=== PATIENT | male | born 1960 | race Caucasian/White ===

== ENCOUNTER 2023-04-15 11:40 | Emergency (ER) | payer MEDICAID ==
--- NOTE | 2023-04-15 11:50 | ERPHSYRPT ---
- History of Present Illness Source: family, EMS Exam Limitations: clinical condition Timing/Duration: today Activities at Onset: activity Severity of Dyspnea-Max: moderate Severity of Dyspnea-Current: mild Possible Cause: no prior episodes Modifying Factors: Improves With: activity Associated Symptoms: ankle swelling, No chest pain/discomfort, No dizziness, No productive cough <AL REID - Last Filed: 04/15/23 18:52> <CHRISTOPH MILLER - Last Filed: 04/15/23 22:06> - History of Present Illness Time Seen by Provider: 04/15/23 11:50 Physician History: This is a 62-year-old white male patient brought in by the ambulance service because of patient falling/collapsing and unable to get up. Per EMS report, they arrived and patient was leaning forward with his hands holding his upper torso off the ground and both legs flexed posteriorly. When the paramedics rolled him onto his back and straightened out his legs he began having significant shortness of breath and there was a change in his mental status. Because of respiratory distress they opted to intubate him. Patient arrived to the emergency department intubated but awake alert and oriented. Respiratory therapy decided on their own to remove the ET tube that was in place. Per their report the balloon was not inflated. Patient was unable to provide information because of the orotracheal intubation. (AL REID) Allergies/Adverse Reactions: No Known Drug Allergies Allergy (Verified 04/15/23 11:58) Home Medications: No Reportable Medications [No Reported Medications] 04/15/23 [History] Travel Risk - International Travel Have you traveled outside of the country in past 3 weeks: No - Coronavirus Screening Are you exhibiting any of the following symptoms?: No Close contact with a COVID-19 positive Pt in past 14-21 Days: No <AL REID - Last Filed: 04/15/23 18:52> - Review of Systems Constitutional: No Symptoms Eyes: No Symptoms Ears, Nose, & Throat: No Symptoms Respiratory: Dyspnea Cardiac: No Symptoms Abdominal/Gastrointestinal: No Symptoms Genitourinary Symptoms: No Symptoms Musculoskeletal: No Symptoms Skin: No Symptoms Neurological: No Symptoms Psychological: No Symptoms Endocrine: No Symptoms Hematologic/Lymphatic: No Symptoms Immunological/Allergic: No Symptoms All Other Systems: Reviewed and Negative <AL REID GiancarloGuilherme - Last Filed: 04/15/23 18:52> - Past Medical History Pertinent Past Medical History: Yes - Past Surgical History Past Surgical History: Yes <AL REID GiancarloGuilherme - Last Filed: 04/15/23 18:52> - Physical Exam General Appearance: other (Patient orotracheally intubated awake and alert) Eye Exam: PERRL/EOMI, eyes nml inspection Ears, Nose, Throat Exam: hearing grossly normal Neck Exam: normal inspection, non-tender, supple, full range of motion Respiratory Exam: normal breath sounds, lungs clear, airway intact, other (Patient orotracheally intubated), No chest tenderness Cardiovascular/Chest Exam: normal heart sounds, regular rate/rhythm Abdominal/Gastrointestinal Exam: soft, normal bowel sounds, No tenderness Rectal Exam: not done Extremity Exam: pelvis stable, pedal edema Neurologic Exam: alert, oriented x 3, cooperative, 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, normal mood/affect Skin Exam: normal color, warm, dry Lymphatic Exam: No adenopathy SpO2 Interpretation: normal O2 Delivery: Room Air <AL REID GiancarloGuilherme - Last Filed: 04/15/23 18:52> - Nursing Vital Signs Nursing Vital Signs: Initial Vital Signs Temperature 97.6 F 04/15/23 11:41 Pulse Rate 107 H 04/15/23 11:41 Respiratory Rate 26 H 04/15/23 11:41 Blood Pressure 72/50 04/15/23 11:41 O2 Sat by Pulse Oximetry 99 04/15/23 11:41 Pain Scale Pain Intensity 0 - Course Nursing assessment & vital signs reviewed: Yes EKG Interpreted by Me: RATE ([id number]), Sinus Tach, NORMAL AXIS, NORMAL INTERVALS, NORMAL QRS, NORMAL ST-T, Other (No acute ischemic changes on today's twelve-lead EKG.) <AL REID GiancarloGuilherme - Last Filed: 04/15/23 18:52> Ordered Tests: Active Orders 24 hr Category Date Time Status Maid Cleaning Cooking STAT Care 04/15/23 11:53 Active EKG-ER Only STAT Care 04/15/23 11:51 Active IV Insertion STAT Care 04/15/23 11:51 Active POCT Glucose Check STAT Care 04/15/23 12:03 Active Pulse Oximetry (ED) STAT Care 04/15/23 11:51 Active ABDOMEN AND PELVIS W/0 CONTRAS [CT] Stat Exams 04/15/23 19:00 Completed CHEST 1 VIEW (PORTABLE) Routine Exams 04/15/23 14:41 Taken CHEST 1 VIEW (PORTABLE) Stat Exams 04/15/23 12:18 Taken HEAD WITHOUT CONTRAST [CT] Stat Exams 04/15/23 12:36 Completed ABG [ARTERIAL BLOOD GASES] Urgent Lab 04/15/23 15:55 Completed BLOOD CULTURE Stat Lab 04/15/23 12:10 Received BMP Stat Lab 04/15/23 17:07 Completed CBC W DIFF Stat Lab 04/15/23 12:10 Results CBC W DIFF Stat Lab 04/15/23 17:07 Completed CMP Stat Lab 04/15/23 12:10 Completed CULTURE,URINE Stat Lab 04/15/23 12:59 Received D-DIMER QUANTITATIVE Stat Lab 04/15/23 12:10 Completed Lactic Acid Stat Lab 04/15/23 12:15 Completed Lactic Acid Stat Lab 04/15/23 14:24 Completed MAGNESIUM Stat Lab 04/15/23 12:10 Completed Manual Differential NC Stat Lab 04/15/23 12:10 Results Manual Differential NC Stat Lab 04/15/23 17:07 Completed NT PRO BNPII Stat Lab 04/15/23 12:10 Completed POCT GLUCOSE Stat Lab 04/15/23 12:03 Completed Pathologist Review Stat Lab 04/15/23 12:10 Results TROPONIN Q4H Lab 04/15/23 12:10 Completed TROPONIN Q4H Lab 04/15/23 15:50 Completed TROPONIN Q4H Lab 04/15/23 20:20 Completed UA W/RFX UR CULTURE Stat Lab 04/15/23 12:59 Completed VBG [VENOUS BLOOD GAS] Stat Lab 04/15/23 12:21 Completed Transfer Order Routine Transfer 04/15/23 Ordered Medication Summary Generic Name Dose Route Start Last Admin Trade Name Freq PRN Reason Stop Dose Admin Sodium Chloride 1,000 mls @ 100 mls/hr 04/15/23 13:15 04/15/23 13:04 Sodium Chloride 0.9% 1000 Ml IV 05/15/23 13:14 100 mls/hr .Q10H ERNIE Administration Norepinephrine/Dextrose 8 mg in 250 mls @ 15 mls/hr 04/15/23 14:07 04/15/23 21:05 Norepinephrine 8 Mg/250 Ml-D5w IV 05/15/23 14:06 2 mcg/min .[id number] PRN 3.75 mls/hr HYPOTENSION Titration Protocol 8 MCG/MIN Sodium Chloride 1,000 mls @ 250 mls/hr 04/15/23 14:45 04/15/23 15:13 Sodium Chloride 0.9% 1000 Ml IV 05/15/23 14:44 250 mls/hr .Q4H ERNIE Administration Sodium Chloride 1,000 mls @ 999 mls/hr 04/15/23 21:50 Sodium Chloride 0.9% 1000 Ml IV 04/15/23 22:50 .Q1H1M STA Discontinued Medications Generic Name Dose Route Start Last Admin Trade Name Freq PRN Reason Stop Dose Admin Enoxaparin Sodium 80 mg 04/15/23 13:21 04/15/23 13:30 Enoxaparin Sodium 80 Mg/0.8 Ml Syringe SQ 04/15/23 13:22 80 mg STAT ONE Administration Enoxaparin Sodium Confirm 04/15/23 13:27 Enoxaparin Sodium 80 Mg/0.8 Ml Syringe Administered 04/15/23 13:28 Dose 80 mg SQ .STK-MED ONE Enoxaparin Sodium Confirm 04/15/23 13:32 Enoxaparin Sodium 80 Mg/0.8 Ml Syringe Administered 04/15/23 13:33 Dose 80 mg SQ .STK-MED ONE Meropenem 1 gm/ Sodium 100 mls @ 200 mls/hr 04/15/23 12:49 04/15/23 13:04 Chloride IV 04/15/23 13:18 200 mls/hr STAT ONE Administration Sodium Chloride Confirm 04/15/23 13:04 Sodium Chloride 100ml Mini-Bag Plus Administered 04/15/23 13:05 Dose 100 mls @ ud IV .STK-MED ONE Meropenem Confirm 04/15/23 13:03 Meropenem 1 Gm Vial Administered 04/15/23 13:04 Dose 1 gm IV .STK-MED ONE Lab/Rad Data: Laboratory Result Diagrams 04/15/23 17:07 04/15/23 17:07 Laboratory Results 04/15/23 04/15/23 04/15/23 Range/Units 20:20 17:07 17:07 WBC 21.2 H (4.0-10.5) x10^3/uL RBC 3.94 L (4.1-5.6) x10^6/uL Hgb 11.1 L (12.5-18.0) g/dL Hct 34.5 L (42-50) % MCV 87.6 (78-100) fL MCH 28.2 (26-32) pg MCHC 32.2 (32-36) g/dL RDW 15.2 H (11.5-14.0) % Plt Count 328 (150-450) x10^3/uL MPV 9.4 (7.5-11.0) fL Segmented Neutrophils 61 (36.-66.) % Band Neutrophils 24 H (0.0-2.0) % Lymphocytes (Manual) 4 L (24-44) % Monocytes (Manual) 4 (0.0-12.0) % Metamyelocytes 7 % Toxic Granulation Platelet Estimate NORMAL (NORMAL) RBC Morphology NORMAL Anisocytosis Smear Path Review D-Dimer (0.0-0.50) mg/L Puncture Site pCO2 (35-45) mmHg pO2 (75-100) mmHg pO2/FiO2 Ratio % Base Excess (-2.0-2.0) O2 Saturation (94-100) g/dF ABG pH (7.35-7.45) ABG HCO3 (22-28) ABG O2 Sat (Measured) (95-100) % Johnathon Test VBG pH (7.32-7.42) VBG pCO2 at Pat Temp (42-55) mm/Hg VBG pO2 at Pat Temp (25-40) mm/Hg VBG HCO3 (22-28) meq/L VBG O2 Sat (Harejet) (95-100) VBG Base Excess (-2.0-2.0) VBG Hemoglobin VBG Carboxyhemoglobin (0.0-6.9) % T HGB A-a Gradient a/A Ratio Hemoglobin Carboxyhemoglobin (0.0-6.9) % THgb Methemoglobin (1.4-1.5) % POC Potassium (3.5-5.1) Temperature C POC O2 Flow Rate % Sodium 134 L (137-145) mmol/L Potassium 4.2 (3.5-5.1) mmol/L Chloride 102 (98-107) mmol/L Carbon Dioxide 22 (22-30) mmol/L Anion Gap 14.9 (5-15) MEQ/L BUN 43 H (9-20) mg/dL Creatinine 1.75 H (0.66-1.25) mg/dL Estimated GFR 41.9 ML/MIN Glucose 149 H (74-106) mg/dL POC Glucometer (74 to 106) mg/dL Lactic Acid (0.4-2.0) Calcium 6.5 L D (8.4-10.2) mg/dL Magnesium (1.6-2.3) mg/dL Total Bilirubin (0.2-1.3) mg/dL AST (17-59) U/L ALT (0-50) U/L Alkaline Phosphatase (38-126) U/L Troponin I < 0.012 (0.000-0.034) ng/mL NT-Pro-B Natriuret Pep (<300) pg/mL Serum Total Protein (6.3-8.2) g/dL Albumin (3.5-5.0) g/dL Urine Color (Yellow) Urine Appearance (Clear) Urine pH (4.6-8.0) Ur Specific Crowder (1.005-1.030) Urine Protein (Negative) Urine Glucose (UA) (Negative) mg/dL Urine Ketones (Negative) Urine Blood (Negative) Urine Nitrite (Negative) Urine Bilirubin (Negative) Urine Urobilinogen (0.2) mg/dL Ur Leukocyte Esterase (Negative) U Hyaline Cast (Auto) (0-2) /LPF Urine Microscopic RBC (0-5) /HPF Urine Microscopic WBC (0-5) /HPF Ur Epithelial Cells (None Seen) /HPF Urine Bacteria (None Seen) /HPF Urine Culture Reflexed (NO) Influenza Type A Ag (NEGATIVE) Influenza Type B Ag (NEGATIVE) RSV (PCR) (NEGATIVE) SARS-CoV-2 (PCR) (NEGATIVE) 04/15/23 04/15/23 04/15/23 Range/Units 15:55 15:50 14:24 WBC (4.0-10.5) x10^3/uL RBC (4.1-5.6) x10^6/uL Hgb (12.5-18.0) g/dL Hct (42-50) % MCV (78-100) fL MCH (26-32) pg MCHC (32-36) g/dL RDW (11.5-14.0) % Plt Count (150-450) x10^3/uL MPV (7.5-11.0) fL Segmented Neutrophils (36.-66.) % Band Neutrophils (0.0-2.0) % Lymphocytes (Manual) (24-44) % Monocytes (Manual) (0.0-12.0) % Metamyelocytes % Toxic Granulation Platelet Estimate (NORMAL) RBC Morphology Anisocytosis Smear Path Review D-Dimer (0.0-0.50) mg/L Puncture Site LEFT BRACHIAL pCO2 30 L (35-45) mmHg pO2 61 L (75-100) mmHg pO2/FiO2 Ratio % Base Excess -3.6 L (-2.0-2.0) O2 Saturation 90.6 L (94-100) g/dF ABG pH 7.43 (7.35-7.45) ABG HCO3 19.9 L (22-28) ABG O2 Sat (Measured) 90.9 L (95-100) % Johnathon Test na VBG pH (7.32-7.42) VBG pCO2 at Pat Temp (42-55) mm/Hg VBG pO2 at Pat Temp (25-40) mm/Hg VBG HCO3 (22-28) meq/L VBG O2 Sat (Harjeet) (95-100) VBG Base Excess (-2.0-2.0) VBG Hemoglobin VBG Carboxyhemoglobin (0.0-6.9) % T HGB A-a Gradient 130 a/A Ratio 0.32 Hemoglobin 10.9 Carboxyhemoglobin 0.3 (0.0-6.9) % THgb Methemoglobin 0.0 L (1.4-1.5) % POC Potassium (3.5-5.1) Temperature 37.0 C POC O2 Flow Rate 32 % Sodium (137-145) mmol/L Potassium 3.9 (3.5-5.1) mmol/L Chloride (98-107) mmol/L Carbon Dioxide (22-30) mmol/L Anion Gap (5-15) MEQ/L BUN (9-20) mg/dL Creatinine (0.66-1.25) mg/dL Estimated GFR ML/MIN Glucose (74-106) mg/dL POC Glucometer (74 to 106) mg/dL Lactic Acid 1.2 (0.4-2.0) Calcium (8.4-10.2) mg/dL Magnesium (1.6-2.3) mg/dL Total Bilirubin (0.2-1.3) mg/dL AST (17-59) U/L ALT (0-50) U/L Alkaline Phosphatase (38-126) U/L Troponin I < 0.012 (0.000-0.034) ng/mL NT-Pro-B Natriuret Pep (<300) pg/mL Serum Total Protein (6.3-8.2) g/dL Albumin (3.5-5.0) g/dL Urine Color (Yellow) Urine Appearance (Clear) Urine pH (4.6-8.0) Ur Specific Crowder (1.005-1.030) Urine Protein (Negative) Urine Glucose (UA) (Negative) mg/dL Urine Ketones (Negative) Urine Blood (Negative) Urine Nitrite (Negative) Urine Bilirubin (Negative) Urine Urobilinogen (0.2) mg/dL Ur Leukocyte Esterase (Negative) U Hyaline Cast (Auto) (0-2) /LPF Urine Microscopic RBC (0-5) /HPF Urine Microscopic WBC (0-5) /HPF Ur Epithelial Cells (None Seen) /HPF Urine Bacteria (None Seen) /HPF Urine Culture Reflexed (NO) Influenza Type A Ag (NEGATIVE) Influenza Type B Ag (NEGATIVE) RSV (PCR) (NEGATIVE) SARS-CoV-2 (PCR) (NEGATIVE) 04/15/23 04/15/23 04/15/23 Range/Units 12:59 12:21 12:15 WBC (4.0-10.5) x10^3/uL RBC (4.1-5.6) x10^6/uL Hgb (12.5-18.0) g/dL Hct (42-50) % MCV (78-100) fL MCH (26-32) pg MCHC (32-36) g/dL RDW (11.5-14.0) % Plt Count (150-450) x10^3/uL MPV (7.5-11.0) fL Segmented Neutrophils (36.-66.) % Band Neutrophils (0.0-2.0) % Lymphocytes (Manual) (24-44) % Monocytes (Manual) (0.0-12.0) % Metamyelocytes % Toxic Granulation Platelet Estimate (NORMAL) RBC Morphology Anisocytosis Smear Path Review D-Dimer (0.0-0.50) mg/L Puncture Site pCO2 (35-45) mmHg pO2 (75-100) mmHg pO2/FiO2 Ratio 100.0 % Base Excess (-2.0-2.0) O2 Saturation (94-100) g/dF ABG pH (7.35-7.45) ABG HCO3 (22-28) ABG O2 Sat (Measured) (95-100) % Johnathon Test VBG pH 7.21 L* (7.32-7.42) VBG pCO2 at Pat Temp 47 (42-55) mm/Hg VBG pO2 at Pat Temp 48 H (25-40) mm/Hg VBG HCO3 18.8 L (22-28) meq/L VBG O2 Sat (Harjeet) 70.8 L (95-100) VBG Base Excess -8.9 L (-2.0-2.0) VBG Hemoglobin 12.3 VBG Carboxyhemoglobin 4.8 (0.0-6.9) % T HGB A-a Gradient a/A Ratio Hemoglobin Carboxyhemoglobin (0.0-6.9) % THgb Methemoglobin (1.4-1.5) % POC Potassium 5.0 (3.5-5.1) Temperature C POC O2 Flow Rate % Sodium (137-145) mmol/L Potassium (3.5-5.1) mmol/L Chloride (98-107) mmol/L Carbon Dioxide (22-30) mmol/L Anion Gap (5-15) MEQ/L BUN (9-20) mg/dL Creatinine (0.66-1.25) mg/dL Estimated GFR ML/MIN Glucose (74-106) mg/dL POC Glucometer (74 to 106) mg/dL Lactic Acid 7.0 H (0.4-2.0) Calcium (8.4-10.2) mg/dL Magnesium (1.6-2.3) mg/dL Total Bilirubin (0.2-1.3) mg/dL AST (17-59) U/L ALT (0-50) U/L Alkaline Phosphatase (38-126) U/L Troponin I (0.000-0.034) ng/mL NT-Pro-B Natriuret Pep (<300) pg/mL Serum Total Protein (6.3-8.2) g/dL Albumin (3.5-5.0) g/dL Urine Color Dark Yellow (Yellow) Urine Appearance Clear (Clear) Urine pH 5.5 (4.6-8.0) Ur Specific Crowder >=1.030 A (1.005-1.030) Urine Protein 30 (Negative) Urine Glucose (UA) Negative (Negative) mg/dL Urine Ketones 15 A (Negative) Urine Blood Negative (Negative) Urine Nitrite Positive A (Negative) Urine Bilirubin Moderate A (Negative) Urine Urobilinogen 2.0 A (0.2) mg/dL Ur Leukocyte Esterase Small A (Negative) U Hyaline Cast (Auto) 3-5 A (0-2) /LPF Urine Microscopic RBC 0-2 (0-5) /HPF Urine Microscopic WBC 3-5 (0-5) /HPF Ur Epithelial Cells None Seen (None Seen) /HPF Urine Bacteria None Seen (None Seen) /HPF Urine Culture Reflexed YES (NO) Influenza Type A Ag (NEGATIVE) Influenza Type B Ag (NEGATIVE) RSV (PCR) (NEGATIVE) SARS-CoV-2 (PCR) (NEGATIVE) 04/15/23 04/15/23 04/15/23 Range/Units 12:10 12:10 12:10 WBC (4.0-10.5) x10^3/uL RBC (4.1-5.6) x10^6/uL Hgb (12.5-18.0) g/dL Hct (42-50) % MCV (78-100) fL MCH (26-32) pg MCHC (32-36) g/dL RDW (11.5-14.0) % Plt Count (150-450) x10^3/uL MPV (7.5-11.0) fL Segmented Neutrophils (36.-66.) % Band Neutrophils (0.0-2.0) % Lymphocytes (Manual) (24-44) % Monocytes (Manual) (0.0-12.0) % Metamyelocytes % Toxic Granulation Platelet Estimate (NORMAL) RBC Morphology Anisocytosis Smear Path Review D-Dimer 3.70 H* (0.0-0.50) mg/L Puncture Site pCO2 (35-45) mmHg pO2 (75-100) mmHg pO2/FiO2 Ratio % Base Excess (-2.0-2.0) O2 Saturation (94-100) g/dF ABG pH (7.35-7.45) ABG HCO3 (22-28) ABG O2 Sat (Measured) (95-100) % Johnathon Test VBG pH (7.32-7.42) VBG pCO2 at Pat Temp (42-55) mm/Hg VBG pO2 at Pat Temp (25-40) mm/Hg VBG HCO3 (22-28) meq/L VBG O2 Sat (Harjeet) (95-100) VBG Base Excess (-2.0-2.0) VBG Hemoglobin VBG Carboxyhemoglobin (0.0-6.9) % T HGB A-a Gradient a/A Ratio Hemoglobin Carboxyhemoglobin (0.0-6.9) % THgb Methemoglobin (1.4-1.5) % POC Potassium (3.5-5.1) Temperature C POC O2 Flow Rate % Sodium (137-145) mmol/L Potassium (3.5-5.1) mmol/L Chloride (98-107) mmol/L Carbon Dioxide (22-30) mmol/L Anion Gap (5-15) MEQ/L BUN (9-20) mg/dL Creatinine (0.66-1.25) mg/dL Estimated GFR ML/MIN Glucose (74-106) mg/dL POC Glucometer (74 to 106) mg/dL Lactic Acid (0.4-2.0) Calcium (8.4-10.2) mg/dL Magnesium (1.6-2.3) mg/dL Total Bilirubin (0.2-1.3) mg/dL AST (17-59) U/L ALT (0-50) U/L Alkaline Phosphatase (38-126) U/L Troponin I < 0.012 (0.000-0.034) ng/mL NT-Pro-B Natriuret Pep (<300) pg/mL Serum Total Protein (6.3-8.2) g/dL Albumin (3.5-5.0) g/dL Urine Color (Yellow) Urine Appearance (Clear) Urine pH (4.6-8.0) Ur Specific Crowder (1.005-1.030) Urine Protein (Negative) Urine Glucose (UA) (Negative) mg/dL Urine Ketones (Negative) Urine Blood (Negative) Urine Nitrite (Negative) Urine Bilirubin (Negative) Urine Urobilinogen (0.2) mg/dL Ur Leukocyte Esterase (Negative) U Hyaline Cast (Auto) (0-2) /LPF Urine Microscopic RBC (0-5) /HPF Urine Microscopic WBC (0-5) /HPF Ur Epithelial Cells (None Seen) /HPF Urine Bacteria (None Seen) /HPF Urine Culture Reflexed (NO) Influenza Type A Ag NEGATIVE (NEGATIVE) Influenza Type B Ag NEGATIVE (NEGATIVE) RSV (PCR) NEGATIVE (NEGATIVE) SARS-CoV-2 (PCR) NEGATIVE (NEGATIVE) 04/15/23 04/15/23 04/15/23 Range/Units 12:10 12:10 12:03 WBC 26.6 H* (4.0-10.5) x10^3/uL RBC 4.25 (4.1-5.6) x10^6/uL Hgb 12.1 L (12.5-18.0) g/dL Hct 38.1 L (42-50) % MCV 89.6 (78-100) fL MCH 28.5 (26-32) pg MCHC 31.8 L (32-36) g/dL RDW 15.3 H (11.5-14.0) % Plt Count 403 (150-450) x10^3/uL MPV 9.6 (7.5-11.0) fL Segmented Neutrophils 74 H (36.-66.) % Band Neutrophils 5 H (0.0-2.0) % Lymphocytes (Manual) 17 L (24-44) % Monocytes (Manual) 4 (0.0-12.0) % Metamyelocytes % Toxic Granulation 1+ Platelet Estimate NORMAL (NORMAL) RBC Morphology ABNORMAL Anisocytosis 1+ Smear Path Review Pending D-Dimer (0.0-0.50) mg/L Puncture Site pCO2 (35-45) mmHg pO2 (75-100) mmHg pO2/FiO2 Ratio % Base Excess (-2.0-2.0) O2 Saturation (94-100) g/dF ABG pH (7.35-7.45) ABG HCO3 (22-28) ABG O2 Sat (Measured) (95-100) % Johnathon Test VBG pH (7.32-7.42) VBG pCO2 at Pat Temp (42-55) mm/Hg VBG pO2 at Pat Temp (25-40) mm/Hg VBG HCO3 (22-28) meq/L VBG O2 Sat (Harjeet) (95-100) VBG Base Excess (-2.0-2.0) VBG Hemoglobin VBG Carboxyhemoglobin (0.0-6.9) % T HGB A-a Gradient a/A Ratio Hemoglobin Carboxyhemoglobin (0.0-6.9) % THgb Methemoglobin (1.4-1.5) % POC Potassium (3.5-5.1) Temperature C POC O2 Flow Rate % Sodium 136 L (137-145) mmol/L Potassium 4.9 (3.5-5.1) mmol/L Chloride 98 (98-107) mmol/L Carbon Dioxide 18 L (22-30) mmol/L Anion Gap 25.2 H (5-15) MEQ/L BUN 36 H (9-20) mg/dL Creatinine 1.90 H (0.66-1.25) mg/dL Estimated GFR 38.1 ML/MIN Glucose 181 H (74-106) mg/dL POC Glucometer 172 H (74 to 106) mg/dL Lactic Acid (0.4-2.0) Calcium 7.7 L (8.4-10.2) mg/dL Magnesium 2.6 H (1.6-2.3) mg/dL Total Bilirubin 1.20 (0.2-1.3) mg/dL AST 217 H (17-59) U/L ALT 71 H (0-50) U/L Alkaline Phosphatase 128 H (38-126) U/L Troponin I (0.000-0.034) ng/mL NT-Pro-B Natriuret Pep 2530 (<300) pg/mL Serum Total Protein 6.6 (6.3-8.2) g/dL Albumin 2.7 L (3.5-5.0) g/dL Urine Color (Yellow) Urine Appearance (Clear) Urine pH (4.6-8.0) Ur Specific Crowder (1.005-1.030) Urine Protein (Negative) Urine Glucose (UA) (Negative) mg/dL Urine Ketones (Negative) Urine Blood (Negative) Urine Nitrite (Negative) Urine Bilirubin (Negative) Urine Urobilinogen (0.2) mg/dL Ur Leukocyte Esterase (Negative) U Hyaline Cast (Auto) (0-2) /LPF Urine Microscopic RBC (0-5) /HPF Urine Microscopic WBC (0-5) /HPF Ur Epithelial Cells (None Seen) /HPF Urine Bacteria (None Seen) /HPF Urine Culture Reflexed (NO) Influenza Type A Ag (NEGATIVE) Influenza Type B Ag (NEGATIVE) RSV (PCR) (NEGATIVE) SARS-CoV-2 (PCR) (NEGATIVE) - Progress Progress: improved, re-examined Air Movement: fair Blood Culture(s) Obtained: Yes Antibiotics given: Yes Counseled pt/family regarding: lab results, diagnosis, rad results <AL REID - Last Filed: 04/15/23 18:52> <CHRISTOPH MILLER - Last Filed: 04/15/23 22:06> - Progress Progress Note: 04/15/23 12:25 Patient was extubated by respiratory therapy without my consent or permission. Since his extubation he has been able to provide more information. Patient was down lower to the ground outside of his vehicle looking for his keys. They had fallen between his seat and the console. He apparently was down on his knees and unable to get up. He states he had not actually fall and he just could not get up and he felt short of breath but did not have chest pain or abdominal pain. He did not hit his head. He states that he was down for a while looking for his keys and when EMS arrived they rolled him on his back and stretch his legs out and then the above history was obtained from the paramedics independently. Currently, he states he has no headache, he has no vision changes, he is awake alert oriented. He has no chest pain and he has no abdominal pain. He does feel short of breath. 04/15/23 13:12 Chest x-ray was interpreted by me. This patient has bilateral/bibasilar pneum othoraces. 04/15/23 13:18 I was able to obtain additional, independent information from a family friend who states that this patient has not seen a doctor in many years. He has been very weak in the last several weeks per her report. The patient does not have an established physician. He is not on any medications and he has no known drug allergies. 04/15/23 18:09 This patient's medical issue is 1 of high complexity. The level of complexity and the work-up performed is based on review of the patient's past medical history, review the patient's medication list, review the patient's drug allergy list, history present illness and physical findings on examination. This patient's work-up includes chest x-ray, Agudelo catheter placement, CBC, CMP, D- dimer, BNP, troponin level, twelve-lead EKG, CT scan of the head, lactic acid level, VBG. We had respiratory evaluate this patient. I reviewed the patient's work-up results. Based on the results the patient has sepsis and the sources are likely respiratory and/or urinary. The patient had bilateral pneumothoraces and we placed a right and left Heimlich valve 8 [place]. Pre and post Heimlich valve placement chest x-rays were reviewed and interpreted by me. We sent off some pleural fluid for microscopic and cell count evaluation. We provided the patient with Primaxin antibiotic. We placed the patient on low-dose Levophed for his hypotension. We repeated CBC and a BMP as well as an arterial blood gas which showed improvement following our treatment/intervention. I spoke with Dr. Fuentes, our telehospitalist. I also spoke with him our head of housekeeping nurse. The patient will be placed in the ICU setting on low-dose Levophed. Patient also received Primaxin intravenously, intravenous fluid, Lovenox subcutaneously every 12 hours, repeat twelve-lead EKG in the morning, repeat labs in the morning, VQ scan. We will repeat a chest x-ray in the morning as well. 04/15/23 18:30 We will hold off on the admission into the hospital I reviewed the radiologist impression and then contacted the radiology company reading for us this evening and I do see that there is actually not a pneumothorax but actually bilateral tension pneumoperitoneum and will perform a CT scan of the abdomen pelvis. 04/15/23 18:52 I will be signing this patient out to/transfer of care to Dr. Lamas at shift change. He will make final disposition of this patient. (AL REID) 04/15/23 21:58 Patient signed out by Dr. Reid. Patient CT abdominal pelvis came back with significance of cecal wall perforation, cecum volvulus with intraluminal air. Patient's vitals remained stable. Patient was weaned down on Levophed and oxygen supplementation. Hope to Dr. Parsons at [facility] in [place] regarding transfer of patient to their hospital. Dr. Parsons discussed case with the general surgery both agree that patient requires transfer to their facility. We will transfer patient via ALS to facility. (CHRISTOPH MILLER) Medical Desision Making - Diagnostic Testing Diagnostic test were ordered, analyzed, and reviewed by me: Yes Radiological Interpretation: Interpreted by me, Reviewed by me, Teleradiologist Report - Risk of complications The pt has a high risk of morbidity or mortality based on: Decision regarding hospitilization or escalation of hosp level of care <AL REID - Last Filed: 04/15/23 18:52> - Departure Critical Care Time: Yes Critical Care Time(excluding separately billable procedures): Critical 30-74 mins (50 minutes) <AL REID - Last Filed: 04/15/23 18:52> - Departure Departure Disposition: Transfer (Patient is being transferred to [facility] to Dr. Parsons who is a accepting physician.) <CHRISTOPH MILLER - Last Filed: 04/15/23 22:06> - Departure Clinical Impression: Bilateral pneumothoraces, Sepsis, UTI (urinary tract infection), Hypotension, Elevated d-dimer, Perforation bowel, Cecal volvulus Condition: Serious Referrals: DOCTOR,NO FAMILY [Primary Care Provider] - Follow up/PCP as directed
[2023-04-15 12:20] LABS: Hematocrit 38.1 % (42-50); Hemoglobin 12.1 g/dL (12.5-18.0); Mean Cell Volume 89.6 fL (78-100); Mean Corpuscular Hemoglobin 28.5 pg (26-32); Mean Corpuscular Hgb Concent. 31.8 g/dL (32-36); Mean Platelet Volume 9.6 fL (7.5-11.0); Platelet Count 403 x10^3/uL (150-450); Red Blood Count 4.25 x10^6/uL (4.1-5.6); Red Cell Distribution Width 15.3 % (11.5-14.0)
[2023-04-15 12:22] LABS: VBG BASE EXCESS -8.9 (-2.0-2.0); VBG CARBOXYHEMOGLOBIN 4.8 % T HGB (0.0-6.9); VBG HCO3- 18.8 meq/L (22-28); VBG HEMOGLOBIN 12.3; VBG O2 SATURATION 70.8 (95-100); VBG pH 7.21 (7.32-7.42)
[2023-04-15 12:26] LABS: White Blood Count 26.6 x10^3/uL (4.0-10.5)
[2023-04-15 12:41] LABS: ALBUMIN 2.7 g/dL (3.5-5.0); ANION GAP 25.2 MEQ/L (5-15); BILIRUBIN,TOTAL 1.2 mg/dL (0.2-1.3); Calcium 7.7 mg/dL (8.4-10.2); Creatinine 1 1.9 mg/dL (0.66-1.25); EST GLOMERULAR FILTRATION RATE 38.1 ML/MIN; MAGNESIUM 2.6 mg/dL (1.6-2.3); Potassium 4.9 mmol/L (3.5-5.1); Total Protein 6.6 g/dL (6.3-8.2)
[2023-04-15] MEDS ORDERED: Merrem 1 GM in Sodium Chloride 100ML MINI-BAG PLUS 100 ML IV ONE (12:49)
[2023-04-15 12:54] LABS: BAND 5 % (0.0-2.0); Lymphocytes 17 % (24-44); Monocyte 4 % (0.0-12.0); Neutrophils 74 % (36.-66.); Total Cells Counted 100
[2023-04-15 12:55] LABS: ANISOCYTOSIS 1+; Platelet Estimate NORMAL (NORMAL); Toxic Granulation 1+
[2023-04-15 12:57] LABS: INFLUENZA A NEGATIVE (NEGATIVE); INFLUENZA B NEGATIVE (NEGATIVE); RESPIRATORY SYNCTIAL VIRUS NEGATIVE (NEGATIVE); SARS-CoV-2 Xpert Express NEGATIVE (NEGATIVE)
[2023-04-15] MEDS ORDERED: Merrem IV ONE (13:03)
[2023-04-15] MEDS ORDERED: Sodium Chloride 100ML MINI-BAG PLUS 100 ML IV ONE (13:04)
[2023-04-15] MEDS ORDERED: Sodium Chloride 0.9% 1000 ML 1,000 ML IV SCH ×2 (13:15→14:45)
[2023-04-15 13:16] LABS: ADD URINE CULTURE? YES (NO); Appearance Clear (Clear); Bacteria None Seen /HPF (None Seen); Bilirubin Moderate (Negative); Blood Negative (Negative); Epithelial Cells None Seen /HPF (None Seen); Glucose, Urine Negative (Negative); Ketones 15 (Negative); Leukocyte Esterase Small (Negative); Nitrite Positive (Negative); Ph 5.5 (4.6-8.0); Protein,Urine Dip 30 (Negative); RBC 0-2 /HPF (0-5); Specific Gravity >=1.030 (1.005-1.030)
[2023-04-15] MEDS ORDERED: ENOXAPARIN SODIUM SQ ONE ×3 (13:21→13:32)
--- NOTE | 2023-04-15 13:45 | XRAY ---
CLINICAL HISTORY:Altered mental status. COMPARISON:None. TECHNIQUES:Contiguous, multi-slice, non-enhanced CT scan of the brain in the axial plane with multiplanar reconstructions in bony and soft tissue windows. CTDI- 53.92 mGy ;Total DLP-1083.55 mGy.cm. FINDINGS: Evident subcortical and deep white matter hypodensities in both frontal and parietal lobes and the right temporal lobe. Mild cerebral atrophic changes as evidenced by prominent cisternal and sulcal spaces and lateral ventricles. No suspicious space-occupying lesions. No intra or extra-axial collections of fresh blood density. The basal ganglia, thalamus, and internal capsule appear normal. Brainstem and ginna appear normal. No shift of midline structures. Unremarkable posterior fossa. Largely preserved cranial calvarial bones. Visualized paranasal sinuses appear clear. IMPRESSION: 1. Mild cerebral atrophy in both cerebral hemispheres. 2. 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 Contrast-enhanced MRI is recommended for further evaluation. Electronically Signed by: Mac Stafford MD. (04/15/2023 12:40:17 CASE MANAGEMENT RN)
[2023-04-15] MEDS ORDERED: NOREPINEPHRINE 8 MG/250 ML-D5W 8 MG/250 ML PLAST..BAG IV PRN (14:07)
[2023-04-15 15:57] LABS: A-aADO2 130; ABG HEMOGLOBIN 10.9; ABG POTASSIUM 3.9 (3.5-5.1); ABG SITE LEFT BRACHIAL; ARTERIAL BLD GAS O2 SATURATION 90.9 % (95-100); ARTERIAL BLOOD GAS BASE EXCESS -3.6 (-2.0-2.0); ARTERIAL BLOOD GAS FIO2 32 %; ARTERIAL BLOOD GAS PCO2 30 mmHg (35-45); ARTERIAL BLOOD GAS PO2 61 mmHg (75-100); ARTERIAL BLOOD GAS pH 7.43 (7.35-7.45); CARBOXYHEMOGLOBIN 0.3 % THgb (0.0-6.9); HCO3- 19.9 (22-28); HGB O2 SAT 90.6 g/dF (94-100); paO2 pAO1 0.32
[2023-04-15 17:09] LABS: Hematocrit 34.5 % (42-50); Hemoglobin 11.1 g/dL (12.5-18.0); Mean Cell Volume 87.6 fL (78-100); Mean Corpuscular Hemoglobin 28.2 pg (26-32); Mean Corpuscular Hgb Concent. 32.2 g/dL (32-36); Mean Platelet Volume 9.4 fL (7.5-11.0); Platelet Count 328 x10^3/uL (150-450); Red Blood Count 3.94 x10^6/uL (4.1-5.6); Red Cell Distribution Width 15.2 % (11.5-14.0); White Blood Count 21.2 x10^3/uL (4.0-10.5)
[2023-04-15 17:31] LABS: ANION GAP 14.9 MEQ/L (5-15); Calcium 6.5 mg/dL (8.4-10.2); Creatinine 1 1.75 mg/dL (0.66-1.25); EST GLOMERULAR FILTRATION RATE 41.9 ML/MIN; Potassium 4.2 mmol/L (3.5-5.1)
[2023-04-15 18:16] LABS: BAND 24 % (0.0-2.0); Lymphocytes 4 % (24-44); Metamyelocyte 7 %; Monocyte 4 % (0.0-12.0); Neutrophils 61 % (36.-66.); Platelet Estimate NORMAL (NORMAL); Total Cells Counted 100
--- NOTE | 2023-04-15 20:47 | XRAY ---
CLINICAL HISTORY:Free air under the diaphragm. Evaluate for perforation; COMPARISON:None; TECHNIQUES:Contiguous, multislice, nonenhanced CT scan of the abdomen and pelvis was performed in the axial plane with multiplanar reconstructions; FINDINGS: There is significant dilatation of the large bowel loops mainly involving the transverse, ascending colon and cecum. The abnormally positioned and dilated cecum and the ileocecal valve have twisted on its mesentery and are located ectopically in the left upper quadrant. At the level of the volvulus, there is an area of swirling of the terminal ileum and its mesentery-the whirl sign, originating in the right lower quadrant and composed of spiraled loops of the collapsed distal ileum, and engorged vessels. Air lucencies seen anterior to the cecal wall mostly represents the site of cecal wall perforation. Intramural air is seen in the ascending colon and cecum representing pneumatosis coli. Small amount of free air is seen representing pneumoperitoneum showing bilateral chest tubes. Faint hypodensities seen in the right lobe of liver. Pancreas and spleen appear unremarkable. Gallbladder is over distended.No definite calculi seen inside. No adrenal mass. Both kidneys appear normal in size, shows normal contour and attenuation.No calculus, mass or hydronephrosis in either kidneys. Mild amount of free fluid seen in the subhepatic space extending into the paracolic gutters and the pelvis. Inadequate urinary bladder distension showing catheter in situ. Normal-sized prostate. Atherosclerotic calcification of the abdominal aorta and iliac vessels. Degenerative changes in the visualized spine showing degenerative disc disease mainly at L4-L5 and L5-S1 levels. Visualized sections of lower chest shows intrapulmonary nodules in both lower lung lobes, the largest measuring about 5.7 mm in the right lower lobe. Emphysematous lung johnston. IMPRESSION: CT findings shows abnormally positioned and dilated cecum and the ileocecal valve which have twisted on its mesentery and are located ectopically in the left upper quadrant showing an area of swirling of the terminal ileum and its mesentery-the whirl sign. Appearances are consistent with cecal volvulus. Air lucencies seen anterior to the cecal wall mostly represents the site of cecal wall perforation. Intramural air is seen in the ascending colon and cecum representing pneumatosis coli. Small amount of free air is seen representing pneumoperitoneum showing bilateral chest tubes. Faint hypodensities in the right lobe of the liver. Contrast-enhanced CT is recommended for further evaluation. Mild amount of free fluid is seen in the subhepatic space extending into the paracolic gutters and pelvis. The [facility] was called at [phone] at 07:30 PM JOB ANALYST, 04/15/2023 and critical medical findings were verbally communicated to Dr Jordan Lynch. Electronically Signed by: Mac Stafford MD. (04/15/2023 19:43:45 JOB ANALYST)
[2023-04-15] MEDS ORDERED: Sodium Chloride 0.9% 1000 ML 1,000 ML IV STA (21:50)
[2023-04-15 22:16] VITALS: BP 112/84; PULSE 101; O2SAT 96
--- NOTE | 2023-04-16 09:58 | XRAY ---
CLINICAL HISTORY:Bilateral chest tubes in place, bilateral pneumothorax. COMPARISON:Prior CR done today at 12:01 PM. TECHNIQUES:X-ray of chest-AP portable views. FINDINGS: Normal cardiac size. Lung johnston appear clear. No major collapse or consolidation. No evidence of pleural effusion, pneumothorax. Soft tissues and bony rib cage appear normal. No free air under both domes of the diaphragm. Mild prominent bowel loops seen in the visualized abdomen. Linear tubing structures seen projecting in both upper quadrants. IMPRESSION: No acute cardiopulmonary abnormality, stable. In comparison with the prior study, there is an interval of complete resolution of bilateral pneumoperitoneum. Mild prominent bowel loops seen in the visualized abdomen. Clinical correlation is suggested. Electronically Signed by: Mac Stafford MD. ( 04/15/2023 19:48:18 TAR POT MAN)
--- NOTE | 2023-04-16 12:33 | XRAY ---
CLINICAL HISTORY:Respiratory difficulty COMPARISON:Prior CR done today at 12:01 PM. TECHNIQUES:X-ray of chest-AP portable views. FINDINGS: Normal cardiac size. Lung johnston appear clear. No major collapse or consolidation. No evidence of pleural effusion, pneumothorax. Soft tissues and bony rib cage appear normal. No free air under both domes of the diaphragm. Mild prominent bowel loops seen in the visualized abdomen. Linear tubing structures seen projecting in both upper quadrants. IMPRESSION: 1. No acute cardiopulmonary abnormality, stable. 2. In comparison with the prior study, there is an interval of complete resolution of bilateral pneumoperitoneum. 3. Mild prominent bowel loops seen in the visualized abdomen. 4. Clinical correlation is suggested. Electronically Signed by: Mac Stafford MD. (04/15/2023 19:48:18 CARBONATION TESTER)
[2023-04-17 15:08] LABS: Clarity, Serous Cloudy (Clear); Lymphocytes, Serous 1 % (Not Estab.); Macrophages, Serous 1 % (Not Estab.); RBC, Serous 30000 /uL (Not Estab.)
[2023-04-17 15:21] LABS: Color, Serous Yellow (.); Eosinophils, Serous 0 % (Not Estab.); Nucleated Cells, Serous 118500 /mm3 (0-499)
== END 2023-04-15 22:30 | disposition short-term general hospital (02) ==
LOC: ED 11:40
DX: A41.9 Sepsis, unspecified organism (principal); N39.0 Urinary tract infection, site not specified; K63.1 Perforation of intestine (nontraumatic); K56.2 Volvulus; J93.9 Pneumothorax, unspecified; I95.9 Hypotension, unspecified; R79.1 Abnormal coagulation profile; R53.1 Weakness
CPT/HCPCS: 0241U; 36000; 36415; 36600; 70450; 71045; 74176; 80048; 80053; 81001; 82375; 82803; 82805; 82947; 83605; 83735; 83880; 84484; 85025; 85379; 87040; 87070; 87075; 87086; 87205; 89051; 93005; 93041; 94760; 96365; 96367; 96372; 99285; 99291; J1650